=== PATIENT | male | born 1985 | race Hispanic/Latino ===

== ENCOUNTER 2017-07-11 20:20 | Emergency (ER) | payer SELFPAY ==
--- NOTE | 2017-07-11 21:26 | RAD REPORT ---
EXAM DESCRIPTION: RAD - Abdomen 1 View (KUB) - 07/11/2017 9:21 pm CLINICAL HISTORY: Pain COMPARISON: None. FINDINGS: The bowel gas pattern is non-obstructive. No evidence of free air or pneumatosis. No suspi cious calcifications. No significant bony findings. A marked fecal retention pattern in the colon is noted. IMPRESSION: Severe constipation.
[2017-07-11] MEDS ORDERED: MAGNESIUM CITRATE 300 ML BOT ONE (21:48)
[2017-07-11] MEDS ORDERED: BISACODYL 10 MG RECTAL SUPP ONE (21:48)
[2017-07-11] MEDS ORDERED: FLEET ENEMA ADULT PR ONE (23:31)
--- NOTE | 2017-07-12 00:22 | EDPHYS ---
Physician Documentation [facility] Name: Bulmaro Pepper Age: 32 yrs Sex: Male : 1985 Arrival Date: 07/11/2017 Time: 20:24 Bed 17 Private MD: ED Physician Don Blair HPI: 07/11 21:44 This 32 yrs old Male presents to ER via Ambulatory with complaints of kb Constipation. 21:44 The patient presents with abdominal pain in the left lower quadrant. Onset: The kb symptoms/episode began/occurred 4 day(s) ago. The symptoms do not radiate. Associated signs and symptoms: Pertinent positives: constipation, Pertinent negatives: nausea, vomiting, and diarrhea, fever. The symptoms are described as dull. Modifying factors: The symptoms are alleviated by nothing, the symptoms are aggravated by pressure. Severity of pain: At its worst the pain was moderate in the emergency department the pain is unchanged. The patient has not experienced similar symptoms in the past. The patient has not recently seen a physician. Pt states he has had constipation for 4 days and it is causing lower abd fullness/pain. Historical: - Allergies: 20:45 No Known Allergies; lk1 - PMHx: 20:45 None; lk1 - PSHx: 20:45 None; lk1 - Immunization history:: Adult Immunizations up to date. - Social history:: Smoking status: Patient/guardian denies using tobacco. ROS: 21:42 Constitutional: Negative for fever, chills, and weight loss, Cardiovascular: Negative kb for chest pain, palpitations, and edema, Respiratory: Negative for shortness of breath, cough, wheezing, and pleuritic chest pain, Back: Negative for injury and pain, MS/Extremity: Negative for injury and deformity, Skin: Negative for injury, rash, and discoloration, Neuro: Negative for headache, weakness, numbness, tingling, and seizure. 21:42 Abdomen/GI: Positive for abdominal pain, constipation, Negative for nausea, vomiting, and diarrhea, abdominal cramps, abdominal distension, anorexia. Exam: 21:42 Constitutional: This is a well developed, well nourished patient who is awake, alert, kb and in no acute distress. Head/Face: Normocephalic, atraumatic. Chest/axilla: Normal chest wall appearance and motion. Nontender with no deformity. No lesions are appreciated. Cardiovascular: Regular rate and rhythm with a normal S1 and S2. No gallops, murmurs, or rubs. Normal PMI, no JVD. No pulse deficits. Respiratory: Lungs have equal breath sounds bilaterally, clear to auscultation and percussion. No rales, rhonchi or wheezes noted. No increased work of breathing, no retractions or nasal flaring. Skin: Warm, dry with normal turgor. Normal color with no rashes, no lesions, and no evidence of cellulitis. MS/ Extremity: Pulses equal, no cyanosis. Neurovascular intact. Full, normal range of motion. Neuro: Awake and alert, GCS 15, oriented to person, place, time, and situation. Cranial nerves II-XII grossly intact. Motor strength 5/5 in all extremities. Sensory grossly intact. Cerebellar exam normal. Normal gait. 21:42 Abdomen/GI: Inspection: abdomen appears normal, Bowel sounds: normal, in all quadrants, Palpation: soft, in all quadrants, mild abdominal tenderness, in the left lower quadrant. Vital Signs: 20:45 BP 140 / 89; Pulse 75; Resp 15; Temp 98.1(TE); Pulse Ox 100% on R/A; Weight 95.25 kg lk1 (R); Height 5 ft. 6 in. (167.64 cm) (R); Pain 6/10; 22:30 BP 135 / 80; Pulse 72; Resp 16; Pulse Ox 99% on R/A; ao 23:20 BP 129 / 82; Pulse 72; Resp 16; Pulse Ox 99% on R/A; ao 07/12 00:20 BP 138 / 90; Pulse 70; Resp 16; Pulse Ox 100% on R/A; Pain 5/10; ao 07/11 20:45 Body Mass Index 33.89 (95.25 kg, 167.64 cm) lk1 MDM: 05 20:45 Patient medically screened. kb 21:42 Data reviewed: vital signs, nurses notes. Data interpreted: Pulse oximetry: on room air kb is 100 %. Interpretation: normal. 07/12 00:21 Counseling: I had a detailed discussion with the patient and/or guardian regarding: the kb historical points, exam findings, and any diagnostic results supporting the discharge/admit diagnosis, radiology results, the need for outpatient follow up, a family practitioner, to return to the emergency department if symptoms worsen or persist or if there are any questions or concerns that arise at home. ED course: Pt reports feeling better after a bowel movement. 07/11 20:45 Order name: Abdomen 1 View (KUB) XRAY; Complete Time: 21:27 kb Administered Medications: 07/11 22:07 Drug: Magnesium Citrate Liquid 300 ml Route: PO; ao 07/12 00:34 Follow up: Response: No adverse reaction ao 07/11 22:07 Drug: Dulcolax Suppository 10 mg Route: UT; ao 07/12 00:34 Follow up: Response: No adverse reaction ao 07/11 23:36 Drug: Fleet Enema 133 ml Route: UT; ao 07/12 00:35 Follow up: Response: No adverse reaction ao Disposition: 06:45 Co-signature as Attending Physician, Don Blair MD Available for consultation at ps1 all times. . Disposition: 07/12/17 00:22 Discharged to Home. Impression: Constipation. - Condition is Stable. - Discharge Instructions: Constipation, Adult, [id number]. - Medication Reconciliation Form, Thank You Letter, Antibiotic Education, Prescription Opioid Use form. - Follow up: Emergency Department; When: As needed; Reason: Worsening of condition. Follow up: Private Physician; When: 2 - 3 days; Reason: Recheck today's complaints, Continuance of care, Re-evaluation by your physician. Signatures: Dispatcher [employer] Kayla Aviles, MAYUR TRIVEDI-Valerie Shaikh RN RN lk1 Дмитрий Vick RN Don Ortiz MD MD ps1
--- NOTE | 2017-07-12 00:22 | ER ---
Nurse's Notes [facility] Name: Bulmaro Pepper Age: 32 yrs Sex: Male : 1985 Arrival Date: 07/11/2017 Time: 20:24 Bed 17 Private MD: Diagnosis: Constipation Presentation: 07/11 20:44 Presenting complaint: Patient states: constipation X 4 days. Transition of care: lk1 patient was not received from another setting of care. Onset of symptoms was July 07, 2017. Initial Sepsis Screen: Does the patient meet any 2 criteria? No. Patient's initial sepsis screen is negative. Does the patient have a suspected source of infection? No. Patient's initial sepsis screen is negative. Care prior to arrival: None. 20:44 Method Of Arrival: Ambulatory lk1 20:44 Acuity: KEVON 3 lk1 Triage Assessment: 20:45 General: Appears in no apparent distress. Behavior is calm, cooperative, appropriate lk1 for age. Pain: Complains of pain in left lower quadrant Pain currently is 6 out of 10 on a pain scale. GI: Reports constipation. Historical: - Allergies: 20:45 No Known Allergies; lk1 - PMHx: 20:45 None; lk1 - PSHx: 20:45 None; lk1 - Immunization history:: Adult Immunizations up to date. - Social history:: Smoking status: Patient/guardian denies using tobacco. Screenin/02 00:35 Abuse screen: Denies threats or abuse. Denies injuries from another. Nutritional ao screening: No deficits noted. Tuberculosis screening: No symptoms or risk factors identified. Fall Risk None identified. Assessment: 07/11 21:30 General: Appears in no apparent distress. comfortable, Behavior is calm, cooperative, ao appropriate for age. Pain: Complains of pain in abdomen. Neuro: Level of Consciousness is awake, alert, obeys commands, Oriented to person, place, time, situation, Appropriate for age. Cardiovascular: Capillary refill < 3 seconds Patient's skin is warm and dry. Respiratory: Airway is patent Respiratory effort is even, unlabored, Respiratory pattern is regular, symmetrical. GI: Abdomen is distended, Bowel sounds hypoactive in right upper quadrant, left upper quadrant, right lower quadrant and left lower quadrant Abd is soft and non tender X 4 quads. GI: Reports bloating, nausea. : No signs and/or symptoms were reported regarding the genitourinary system. EENT: No signs and/or symptoms were reported regarding the EENT system. Derm: No signs and/or symptoms reported regarding the dermatologic system. Musculoskeletal: No signs and/or symptoms reported regarding the musculoskeletal system. 22:30 Reassessment: Patient appears in no apparent distress at this time. No changes from ao previously documented assessment. Patient and/or family updated on plan of care and expected duration. Pain level reassessed. Patient is alert, oriented x 3, equal unlabored respirations, skin warm/dry/pink. 23:28 Reassessment: Patient appears in no apparent distress at this time. Patient and/or ao family updated on plan of care and expected duration. Pain level reassessed. Patient is alert, oriented x 3, equal unlabored respirations, skin warm/dry/pink. Patient still not had a BM. 07/12 00:36 Reassessment: Patient has been discharge home. Patient understand to get OTC ao medications to relief constipation. Patient has no questions at this time. Vital Signs: 07/11 20:45 BP 140 / 89; Pulse 75; Resp 15; Temp 98.1(TE); Pulse Ox 100% on R/A; Weight 95.25 kg lk1 (R); Height 5 ft. 6 in. (167.64 cm) (R); Pain 6/10; 22:30 BP 135 / 80; Pulse 72; Resp 16; Pulse Ox 99% on R/A; ao 23:20 BP 129 / 82; Pulse 72; Resp 16; Pulse Ox 99% on R/A; ao 07/12 00:20 BP 138 / 90; Pulse 70; Resp 16; Pulse Ox 100% on R/A; Pain 5/10; ao 07/11 20:45 Body Mass Index 33.89 (95.25 kg, 167.64 cm) lk1 ED Course: 07/11 20:24 Patient arrived in ED. al2 20:39 Kayla Mckoy FNP-C [facility]. kb 20:39 Don Blair MD is Attending Physician. kb 20:45 Triage completed. lk1 20:46 Arm band placed on right wrist. lk1 21:09 Patient moved to radiology via wheelchair. kc2 21:15 X-ray completed. Patient tolerated procedure well. kc2 21:15 Patient moved back from radiology. kc2 21:16 Abdomen 1 View (KUB) XRAY In Process Unspecified. EDMS 21:20 Дмитрий Vick, RN is Primary Nurse. ao 07/12 00:35 No provider procedures requiring assistance completed. Patient did not have IV access ao during this emergency room visit. 00:36 Patient has correct armband on for positive identification. ao Administered Medications: 07/11 22:07 Drug: Magnesium Citrate Liquid 300 ml Route: PO; ao 07/12 00:34 Follow up: Response: No adverse reaction ao 07/11 22:07 Drug: Dulcolax Suppository 10 mg Route: UT; ao 07/12 00:34 Follow up: Response: No adverse reaction ao 07/11 23:36 Drug: Fleet Enema 133 ml Route: UT; ao 07/12 00:35 Follow up: Response: No adverse reaction ao Outcome: 00:22 Discharge ordered by . lis 00:35 Discharged to home ambulatory. ao 00:35 Condition: stable 00:35 Discharge instructions given to patient, Instructed on discharge instructions, follow up and referral plans. Demonstrated understanding of instructions, follow-up care, medications. 00:38 Patient left the ED. ao Signatures: Dispatcher [employer] EDMS Kayla Mckoy, STORAGE CONSULTANT-C STORAGE CONSULTANT-Valerie Shaikh RN RN lk1 Дмитрий Vick, RN RN Danni Simpson kc2 Vale Paz
== END 2017-07-12 00:38 | disposition home or self-care (01) ==
LOC: ER 20:20
DX: K59.00 Constipation, unspecified (principal)
CPT/HCPCS: 74018; 99283